=== PATIENT | male | born 1980 | race Hispanic/Latino ===

== ENCOUNTER 2019-01-09 07:34 | Emergency (ER) | payer SELFPAY ==
[2019-01-09] MEDS ORDERED: Cyclobenzaprine 10 MG TAB ONE (08:11)
[2019-01-09] MEDS ORDERED: traMADol HCl 50 MG TAB ONE (08:11)
== END 2019-01-09 08:15 | disposition home or self-care (01) ==
LOC: ERS 07:34
DX: M54.5 Low back pain (principal); I10 Essential (primary) hypertension
CPT/HCPCS: 99283